=== PATIENT | female | born 1975 | race Caucasian/White ===

== ENCOUNTER 2016-09-14 14:06 | Emergency (ER) | END 2016-09-14 15:50 | disposition home or self-care (01) | DX: J45.901 Unspecified asthma with (acute) exacerbation (principal); J06.9 Acute upper respiratory infection, unspecified; I10 Essential (primary) hypertension; E11.9 Type 2 diabetes mellitus without complications; Z79.84 Long term (current) use of oral hypoglycemic drugs | CPT/HCPCS: 93005; 94664; J7512; Z7502; Z7610 ==

== ENCOUNTER 2016-11-03 09:30 | Emergency (ER) | payer OTHER ==
[~2016-11-03] VITALS: Ht 157.5 cm; Wt 77.0 kg
[~2016-11-03 09:30] MED LIST: ALBU18HF INHALATION; ALBU8.5H3 INH; ALPR0.25 PO; BENA20TA48 PO; D-ME473S18 PO; DESO1TAB34 PO; GLIP-95 PO; METF1000 PO; PIOG30TA2 PO; PRED20TA PO; SIMV10TA PO
[2016-11-03 09:33] VITALS: Ht 157.5 cm; Wt 77.0 kg
[2016-11-03 11:19] LABS: URINE BLOOD (Dip) POC 2+ (NEGATIVE)
--- NOTE | 2016-11-04 07:30 | ERD ---
DATE OF SERVICE:11/03/16 CHIEF COMPLAINT: Painful urination. HISTORY OF PRESENT ILLNESS: The patient is a 40-year-old female with history of diabetes mellitus, hypertension, hypercholesterolemia, presenting with painful urination for 3 days. She states that she has had burning, pain, urgency, frequency, and intermittent blood in the urine. She has not had any fevers, chills, nausea, vomiting, diarrhea. Denies flank pain. REVIEW OF SYSTEMS: A 12 point ROS done. PHYSICAL EXAMINATION: VITAL SIGNS: Temperature 98.2, pulse 91, blood pressure 136/79, respirations 18. O2 saturation 97 percent. General: Well-developed, well-nourished. The patient appears in no acute distress. HEENT: Head is normocephalic, atraumatic. No scleral icterus. Pupils are equal , round, and reactive. Oral mucous membranes are moist. No pharyngeal erythema. Neck: Supple. Nontender. Lungs: Clear to auscultation. Normal air movement. Heart: Regular rate and rhythm. S1 and S2 are normal. No murmurs, gallops, or rubs. Abdomen: Soft, nontender, nondistended. Bowel sounds are normoactive. Extremities: No clubbing or cyanosis. Normal pulses. Moving extremities x 4. No weakness. Neurologic: Alert and oriented 3. No focal deficits. Skin: Normal turgor. No rash or lesions. ED COURSE: Urine dip shows 2+ leukocyte esterase. MEDICAL DECISION MAKING/EMERGENCY DEPARTMENT COURSE: This is a 40-year-old female presenting with painful urination for 3 days, as well as intermittent blood in the urine, consistent with acute cystitis. The patient presents with lower urinary tract infection, with hemorrhagic cystitis. She does not show any signs of systemic infection, no pyelonephritis. I doubt kidney stones, sepsis. She is well-appearing and stable and appropriate for outpatient management. IMPRESSION: 1. Urinary tract infection. 2. Discharge home stable. DICTATED: Opal Rivera PA-C. Dictated By: Opal Rivera PA-C /[email or web address]/sam /Document#: [id number] MTDD
== END 2016-11-03 14:17 | disposition home or self-care (01) ==
LOC: FTE 09:30
DX: N39.0 Urinary tract infection, site not specified (principal); E11.9 Type 2 diabetes mellitus without complications; I10 Essential (primary) hypertension
CPT/HCPCS: 81003; Z7502; 99282

== ENCOUNTER 2017-05-01 19:18 | Emergency (ER) | END 2017-05-01 23:55 | disposition home or self-care (01) ==

== ENCOUNTER 2018-02-21 20:18 | Emergency (ER) | payer OTHER ==
[~2018-02-21] VITALS: Ht 162.6 cm; Wt 77.0 kg
[~2018-02-21 20:18] MED LIST changes: -ALBU8.5H3 INH; +ALBU8.5H8 INH; +AZIT500T5 PO; +BENA20TA4 PO; -BENA20TA48 PO; -GLIP-95 PO; +GLIP10TA14 PO; -METF1000 PO; +METF100010 PO; +NAPR-688 PO; +PIOG30TA12 PO; -PIOG30TA2 PO
[2018-02-21 20:57] VITALS: Ht 162.6 cm; Wt 77.0 kg
[2018-02-21] MEDS ORDERED: CEFEPIME 2GM/50 ML (PMX) 50 ML IVPB STA (23:30)
[2018-02-21] MEDS ORDERED: ACETAMINOPHEN 325 MG TAB PO STA (23:30)
[2018-02-21] MEDS ORDERED: VANCOMYCIN 1 GM (PMX) 250 ML IVPB ONE (23:30)
[2018-02-21] MEDS ORDERED: SODIUM CHLORIDE 0.9% 1L BAG IV* STA (23:30)
[2018-02-22] MEDS ORDERED: CIPR500T4 PO (01:58)
[2018-02-22] MEDS ORDERED: IBUP-1542 PO (01:58)
[2018-02-22] MEDS ORDERED: ONDA4TAB14 PO (01:58)
[2018-02-22 04:15] VITALS: BP 120/74; PULSE 98; RESP 18
--- NOTE | 2018-03-19 23:11 | ERD ---
ER Documentation Chief Complaint Chief Complaint LEFT FLANK PAIN WITH DYSURIA & FEVER X 3 DAYS HPI 39-year-old female with left flank pain dysuria and fever for the past 3 days. She had urgency and frequency of urination as well. Flank pain is mild to moderate intensity no exacerbating factors. Mild nausea but no vomiting. No other current complaints. No trauma. No sick contacts. ROS All systems reviewed and are negative except as per history of present illness. Medications Home Meds Active Scripts Ondansetron (Ondansetron Odt) 4 Mg Tab.rapdis, 4 MG PO Q6H PRN for NAUSEA AND/OR VOMITING, #10 TAB Prov:MONA VENCES. 02/22/18 Ibuprofen* (Motrin*) 600 Mg Tab, 600 MG PO Q6, #30 TAB Prov:MONA VENCES. 02/22/18 Ciprofloxacin Hcl* (Ciprofloxacin Hcl*) 500 Mg Tablet, 500 MG PO BID for 7 Days, TAB Prov:MONA VENCES 02/22/18 Azithromycin* (Azithromycin*) 500 Mg Tablet, 500 MG PO DAILY, #3 TAB Prov:HEATHER KUMAR DO 05/01/17 Naproxen* (Naproxen*) 500 Mg Tablet, 500 MG PO BID PRN for PAIN, #20 TAB Prov:HEATHER KUMAR DO 05/01/17 Dextromethorphan Hb-Promethazine Hcl (Promethazine DM Syrup) 473 Ml Syrup, 5 ML PO Q6H PRN for COUGH, #4 OZ Prov:JUAN ANTONIO SANDERSON MD 09/14/16 Albuterol Sulfate* (Ventolin HFA*) 18 Gm Hfa.aer.ad, 2 PUFF INHALATION Q4H, #1 INHALER Prov:JUAN ANTONIO SANDERSON MD 09/14/16 Prednisone* (Prednisone*) 20 Mg Tab, 40 MG PO DAILY for 4 Days, TAB Prov:JUAN ANTONIO SANDERSON MD 09/14/16 Alprazolam* (Xanax*) 0.25 Mg Tablet, 0.25 MG PO BID PRN for ANXIETY, #20 TAB Prov:CAMILO ESTEVEZ NP 01/15/16 Albuterol Sulfate* (Proair HFA*) 8.5 Gm Hfa.aer.ad, 2 PUFF INH Q4 for SHORTNESS OF BREATH, #1 INHALER Prov:CAMILO ESTEVEZ V. TABLE GAMES DUAL RATE SUPERVISOR 01/15/16 Reported Medications Desog-Et Estra/Ethin Estra (Viorele 28 Day) 1 Each Tablet, 1 TAB PO DAILY, TAB 01/14/16 Simvastatin* (Zocor*) 10 Mg Tablet, 10 MG PO QHS, #30 TAB 01/14/16 Benazepril Hcl* (Benazepril Hcl*) 20 Mg Tablet, 20 MG PO DAILY, #30 TAB 01/14/16 Pioglitazone Hcl* (Actos*) 30 Mg Tablet, 30 MG PO DAILY, #30 TAB 01/14/16 Glipizide* (Glipizide*) 10 Mg Tablet, 20 MG PO BID, TAB 01/14/16 Metformin Hcl* (Metformin Hcl*) 1,000 Mg Tablet, 1000 MG PO WITH BREAKFAST DINNE, #30 TAB 01/14/16 Allergies Allergies: Coded Allergies: No Known Allergy (Unverified , 01/14/16) PMhx/Soc History of Surgery: No Anesthesia Reaction: No Hx Neurological Disorder: No Hx Respiratory Disorders: No Hx Cardiac Disorders: Yes (HTN, HYPERLIPIDEMIA) Hx Psychiatric Problems: No Hx Miscellaneous Medical Probl: Yes (DIABETES) Hx Alcohol Use: No Hx Substance Use: No Hx Tobacco Use: No Smoking Status: Never smoker Physical Exam Physical Exam Const: No acute distress Head: Atraumatic Eyes: Normal Conjunctiva ENT: Normal External Ears, Nose and Mouth. Neck: Full range of motion. No meningismus. Resp: Clear to auscultation bilaterally Cardio: Regular rate and rhythm, no murmurs Abd: Soft, non tender, non distended. Normal bowel sounds Skin: No petechiae or rashes Back: No midline or flank tenderness Ext: No cyanosis, or edema Neur: Awake and alert Psych: Normal Mood and Affect Results 24 hrs Laboratory Tests Test 02/21/18 23:40 02/21/18 23:50 02/22/18 00:11 02/22/18 00:14 Urine Color YELLOW Urine Clarity SLIGHTLY CLOUDY Urine pH 6.0 Urine Specific 1.008 [place] Urine Ketones NEGATIVE mg/dL Urine Nitrite NEGATIVE mg/dL Urine Bilirubin NEGATIVE mg/dL Urine 1+ mg/dL Urobilinogen Urine Leukocyte TRACE Ines/ul Esterase Urine 4 /HPF Microscopic RBC Urine 4 /HPF Microscopic WBC Urine Squamous FEW /HPF Epithelial Cell s Urine Bacteria FEW /HPF Urine NEGATIVE mg/dL Hemoglobin Urine Glucose 3+ mg/dL Urine Total NEGATIVE mg/dl Protein White Blood 6.3 10^3/ul Count Red Blood Count 4.44 10^6/ul Hemoglobin 12.3 g/dl Hematocrit 37.7 % Mean 84.9 fl Corpuscular Volume Mean 27.7 pg Corpuscular Hemoglobin Mean 32.6 g/dl Corpuscular Hemoglobin Conc ent Red Cell 12.4 % Distribution Width Platelet Count 358 10^3/UL Mean Platelet 9.6 fl Volume Immature 1.400 % Granulocytes % Neutrophils % 84.2 % Lymphocytes % 11.2 % Monocytes % 2.4 % Eosinophils % 0.3 % Basophils % 0.5 % Nucleated Red 0.0 /100WBC Blood Cells % Immature 0.090 10^3/ul Granulocytes # Neutrophils # 5.3 10^3/ul Lymphocytes # 0.7 10^3/ul Monocytes # 0.2 10^3/ul Eosinophils # 0.0 10^3/ul Basophils # 0.0 10^3/ul Nucleated Red 0.0 10^3/ul Blood Cells # Prothrombin 13.0 Sec Time Prothrombin 1.0 Time Ratio INR 0.97 International Normalized Rati o Activated 30.7 Sec Partial Thrombo plast Time Sodium Level 129 mmol/L Potassium Level 4.1 mmol/L Chloride Level 95 mmol/L Carbon Dioxide 20 mmol/L Level Anion Gap 14 Blood Urea 9 mg/dl Nitrogen Creatinine 0.54 mg/dl Est Glomerular > 60 mL/min Filtrat Rate mL/min Glucose Level 320 mg/dl Calcium Level 9.3 mg/dl Total Bilirubin 0.3 mg/dl Direct 0.00 mg/dl Bilirubin Indirect 0.3 mg/dl Bilirubin Aspartate Amino 53 IU/L Transf (AST/SGO T) Alanine 23 IU/L Aminotransferas e (ALT/SGPT) Alkaline 76 IU/L Phosphatase Troponin I < 0.012 ng/ml Total Protein 7.2 g/dl Albumin 4.1 g/dl Globulin 3.10 g/dl Albumin/Globuli 1.32 n Ratio POC Venous 1.8 mmol/L Lactate POC Beta HCG, NEGATIVE Qualitative Current Medications Medications Dose Sig/Gabo Start Time Status Last (Trade) Ordered Route PRN Stop Time Admin Dose Reason Admin Sodium 2,310 ml BOLUS OVER 2 02/21/18 DC 02/22/18 Chloride HOURS STAT 23:30 01:40 (NS) IV* 02/21/18 23:32 650 mg ONCE STAT 02/21/18 DC 02/22/18 Acetaminophen PO 23:30 00:32 (Tylenol 02/21/18 Tab) 23:32 Cefepime HCl 50 ml @ ONCE STAT 02/21/18 DC 02/22/18 100 mls/hr IVPB 23:30 00:31 02/21/18 23:59 Vancomycin 250 ml @ ONCE ONCE 02/21/18 DC 02/22/18 HCl 125 mls/hr IVPB 23:30 01:40 02/22/18 01:29 Procedures/MDM Medical decision m[age]-year-old female with pyelonephritis. At this point is stable for outpatient management. Tolerating p.o. Will be discharged home on antibiotics and told to increase p.o. fluid intake. Follow with PCP. Return for worsening symptoms. Departure Diagnosis: Primary Impression: Flank pain Condition: Stable Patient Instructions: Pyelonephritis, Female (Adult) MONA VENCES Mar 19, 2018 23:10
== END 2018-02-22 04:15 | disposition home or self-care (01) ==
LOC: E/R 20:18
DX: R10.9 Unspecified abdominal pain (principal); E11.9 Type 2 diabetes mellitus without complications; I10 Essential (primary) hypertension; Z79.84 Long term (current) use of oral hypoglycemic drugs
CPT/HCPCS: 71045; 80053; 81001; 81025; 83605; 84484; 85025; 85610; 85730; 87040; 87086; 93005; J0692; J3370; J7030; Z7610; 36415; 96374; 96375